=== PATIENT | female | born 1940 | race Caucasian/White ===

== ENCOUNTER 2016-10-17 06:51 | Inpatient (IN) | payer OTHER ==
[~2016-10-17] VITALS: Ht 162.6 cm; Wt 102.0 kg
[2016-10-17 07:21] LABS: HEMATOCRIT 37.8 % (36.0-46.0); MCH 31.4 PG (29.0-34.0); MCHC 33.9 G/DL (30.0-36.0); MCV 92.6 FL (83-99); MEAN PLAT.VOLUME 9.9 uM^3 (9.5-12.4); PLATELET COUNT 171 K/uL (156-360); RBC DIS.WIDTH-CV 13.6 % (11.8-14.6); RBC DIS.WIDTH-SD 44.9 % (39-53); RED BLOOD COUNT 4.08 M/uL (3.80-5.20); WHITE BLOOD COUNT 15.1 K/uL (4.1-10.2)
[2016-10-17 07:33] LABS: INTER. NORMALIZED RATIO 4.4; PTT 40.4 (25-32)
[2016-10-17] MEDS ORDERED: WARFARIN SODIUM6 MG PO (07:38)
[2016-10-17] MEDS ORDERED: COUMADIN5 MG PO (07:38)
[2016-10-17 07:39] LABS: EOSINOPHIL (%) 0.1 % (0-5); IMMATURE GRANULOCYTE (%) 2.4 % (0.0-0.7); IMMATURE GRANULOCYTE COUNT 3.6 K/uL; LYMPHOCYTE COUNT 0.7 K/uL (1.0-2.8); MONOCYTE (%) 3.4 % (3-12); MONOCYTE COUNT 0.5 K/uL (0-0.8); NEUTROPHIL (%) 89.3 % (45-76); NEUTROPHIL COUNT 13.5 K/uL (1.8-6.4)
[2016-10-17] MEDS ORDERED: ATROVENT H200 INHALA IH (07:39)
[2016-10-17] MEDS ORDERED: FLOVENT DISKUS1 DIS2 IH ×2 (07:40)
[2016-10-17] MEDS ORDERED: LEVALBUTER1.25 MG/3 IH (07:41)
[2016-10-17] MEDS ORDERED: HYZAAR 100-11 TABLET PO (07:42)
[2016-10-17] MEDS ORDERED: MONTELUKAST SOD10 MG PO (07:42)
[2016-10-17] MEDS ORDERED: MUCINEX DM ER1 EACH PO (07:43)
[2016-10-17] MEDS ORDERED: OMEPRAZOLE20 MG PO (07:44)
[2016-10-17] MEDS ORDERED: DELTASONE20 M1 PO (07:44)
[2016-10-17] MEDS ORDERED: TRADJENTA5 MG PO (07:45)
[2016-10-17 07:46] LABS: ANION GAP 13 MEQ/L (2-14); CHLORIDE 98 MEQ/L (99-109); POTASSIUM 4.2 MEQ/L (3.7-5.4); SAMPLE HEMOLYSIS CHECK 0; SAMPLE ICTERIC CHECK 0; SAMPLE LIPEMIA CHECK 0; SODIUM 135 MEQ/L (136-147)
[2016-10-17] MEDS ORDERED: WELCHOL625 MG PO (07:46)
[2016-10-17 07:51] LABS: GFR ESTIMATE (CALCULATED) 51 mL/min/; GLUCOSE 324 mg/dL (70-99); UREA NITROGEN (BUN) 26 mg/dL (9-23)
[2016-10-17 07:55] LABS: TROP-I INTERPRETATION NEGATIVE; TROPONIN-I 0.02 ng/mL (0.0-0.30)
[2016-10-17 08:27] LABS: HEMATOLOGY COMMENT 1 SMEAR COMPATIBLE; USER ID LYM
[2016-10-17 10:31] LABS: POINT-OF-CARE METER ID UU13113747
[2016-10-17] MEDS ORDERED: WARFARIN SODIUM4 MG PO (11:30)
[2016-10-17] MEDS ORDERED: FLONASE16 G1 BOTH NARES (11:30)
[2016-10-17] MEDS ORDERED: CETIRIZINE HCL10 M2 PO (11:30)
[2016-10-17] MEDS ORDERED: METOPROLOL SUC100 MG PO (11:31)
[2016-10-17] MEDS ORDERED: I-CAPS AREDS S1 EACH PO (11:31)
[2016-10-17] MEDS ORDERED: MULTAQ400 MG PO (11:31)
[2016-10-17] MEDS ORDERED: ZETIA10 MG PO (11:32)
[2016-10-17 12:12] VITALS: BP 146/62
[2016-10-17 12:17] LABS: POINT-OF-CARE METER ID UU14174225
[2016-10-17 15:37] VITALS: BP 143/64
[2016-10-17 17:07] LABS: POINT-OF-CARE METER ID UU14174225
[2016-10-17 19:32] VITALS: BP 147/87
[2016-10-18] VITALS (12 sets, daily range): BP systolic 114–189; BP diastolic 56–88
[2016-10-18 07:07] LABS: EOSINOPHIL (%) 0 % (0-5); HEMATOCRIT 36.1 % (36.0-46.0); IMMATURE GRANULOCYTE (%) 0.8 % (0.0-0.7); IMMATURE GRANULOCYTE COUNT 0.1 K/uL; LYMPHOCYTE COUNT 0.6 K/uL (1.0-2.8); MCH 31.3 PG (29.0-34.0); MCHC 33.8 G/DL (30.0-36.0); MCV 92.6 FL (83-99); MEAN PLAT.VOLUME 10.8 uM^3 (9.5-12.4); MONOCYTE (%) 1.8 % (3-12); MONOCYTE COUNT 0.3 K/uL (0-0.8); NEUTROPHIL (%) 93.4 % (45-76); NEUTROPHIL COUNT 14.3 K/uL (1.8-6.4); PLATELET COUNT 179 K/uL (156-360); RBC DIS.WIDTH-SD 46.9 % (39-53); WHITE BLOOD COUNT 15.3 K/uL (4.1-10.2)
[2016-10-18 07:27] LABS: INTER. NORMALIZED RATIO 3.7; PROTHROMBIN TIME 39.5 (9.2-11.2)
[2016-10-18 07:34] LABS: ANION GAP 12 MEQ/L (2-14); CHLORIDE 97 MEQ/L (99-109); GFR ESTIMATE (CALCULATED) 46 mL/min/; GLUCOSE 321 mg/dL (70-99); POTASSIUM 4.1 MEQ/L (3.7-5.4); SAMPLE HEMOLYSIS CHECK 0; SAMPLE ICTERIC CHECK 0; SAMPLE LIPEMIA CHECK 0; SODIUM 137 MEQ/L (136-147); UREA NITROGEN (BUN) 31 mg/dL (9-23)
[2016-10-18 10:02] LABS: POINT-OF-CARE METER ID UU14174225
[2016-10-19] VITALS (13 sets, daily range): BP systolic 98–169; BP diastolic 42–88
[2016-10-19 07:01] LABS: INTER. NORMALIZED RATIO 2.8; PROTHROMBIN TIME 29.4 (9.2-11.2)
[2016-10-19 09:33] LABS: POINT-OF-CARE METER ID UU14174225
[2016-10-19 16:54] LABS: POINT-OF-CARE METER ID UU13113698
[2016-10-19 21:29] LABS: POINT-OF-CARE METER ID UU13113698
[2016-10-20] VITALS (7 sets, daily range): BP systolic 115–141; BP diastolic 43–72
[2016-10-20 06:41] LABS: INTER. NORMALIZED RATIO 2.1; PROTHROMBIN TIME 21.5 (9.2-11.2)
[2016-10-20 07:57] LABS: HEMATOCRIT 40.3 % (36.0-46.0); MCH 30.9 PG (29.0-34.0); MCHC 33.3 G/DL (30.0-36.0); MCV 92.9 FL (83-99); MEAN PLAT.VOLUME 10.7 uM^3 (9.5-12.4); PLATELET COUNT 205 K/uL (156-360); RBC DIS.WIDTH-CV 14.4 % (11.8-14.6); RBC DIS.WIDTH-SD 48.1 % (39-53); RED BLOOD COUNT 4.34 M/uL (3.80-5.20); WHITE BLOOD COUNT 17.7 K/uL (4.1-10.2)
[2016-10-20 08:08] LABS: ANION GAP 12 MEQ/L (2-14); CHLORIDE 97 MEQ/L (99-109); GFR ESTIMATE (CALCULATED) 39 mL/min/; GLUCOSE 203 mg/dL (70-99); POTASSIUM 3.4 MEQ/L (3.7-5.4); SAMPLE HEMOLYSIS CHECK 0; SAMPLE ICTERIC CHECK 0; SAMPLE LIPEMIA CHECK 0; SODIUM 139 MEQ/L (136-147); UREA NITROGEN (BUN) 44 mg/dL (9-23)
[2016-10-20 08:10] LABS: POINT-OF-CARE METER ID UU13113781; POINT-OF-CARE USER ID NUTSLF44
[2016-10-20] MEDS ORDERED: DOXYCYCLINE HY100 M3 PO (11:00)
[2016-10-20] MEDS ORDERED: METOPROLOL TART75 MG PO (11:04)
[2016-10-20] MEDS ORDERED: PREDNISONE10 MG PO (11:05)
[2016-10-20] MEDS ORDERED: LASIX20 MG PO (11:13)
[2016-10-20 12:12] LABS: POINT-OF-CARE METER ID UU13113781; POINT-OF-CARE USER ID NUTSLF44
[2016-10-20 16:51] LABS: POINT-OF-CARE METER ID UU13113698; POINT-OF-CARE USER ID NUTSLF44
== END 2016-10-20 18:20 | disposition home or self-care (01) | DRG 193 ==
LOC: EME → EDBD 06:51 → EDSEX 06:51 → EME 07:41 → 5SOUTH 09:21 → EDOF 09:21 → 5SOUTH 11:34 → 4EAST 10-19 05:07
PROVIDERS: Emergency Medicine; Internal Medicine; Physician Assistant Medical
DX: J18.9 Pneumonia, unspecified organism (principal); J96.21 Acute and chronic respiratory failure with hypoxia; I50.31 Acute diastolic (congestive) heart failure; J44.1 Chronic obstructive pulmonary disease with (acute) exacerbation; N17.9 Acute kidney failure, unspecified; E11.65 Type 2 diabetes mellitus with hyperglycemia; I48.0 Paroxysmal atrial fibrillation; J84.111 Idiopathic interstitial pneumonia, not otherwise specified; I12.9 Hypertensive chronic kidney disease with stage 1 through stage 4 chronic kidney disease, or unspecified chronic kidney disease; E78.5 Hyperlipidemia, unspecified; K21.9 Gastro-esophageal reflux disease without esophagitis; M19.90 Unspecified osteoarthritis, unspecified site; Z77.090 Contact with and (suspected) exposure to asbestos; J30.2 Other seasonal allergic rhinitis; J84.10 Pulmonary fibrosis, unspecified; I27.2 Other secondary pulmonary hypertension; E66.9 Obesity, unspecified; J20.9 Acute bronchitis, unspecified; N18.3 Chronic kidney disease, stage 3 (moderate); H35.30 Unspecified macular degeneration; E11.22 Type 2 diabetes mellitus with diabetic chronic kidney disease; I35.1 Nonrheumatic aortic (valve) insufficiency; I36.1 Nonrheumatic tricuspid (valve) insufficiency; E87.6 Hypokalemia; I34.0 Nonrheumatic mitral (valve) insufficiency; Z99.81 Dependence on supplemental oxygen; Z79.52 Long term (current) use of systemic steroids; Z79.01 Long term (current) use of anticoagulants; Z79.84 Long term (current) use of oral hypoglycemic drugs; Z68.38 Body mass index [BMI] 38.0-38.9, adult; Z88.2 Allergy status to sulfonamides; Z82.49 Family history of ischemic heart disease and other diseases of the circulatory system; Z80.41 Family history of malignant neoplasm of ovary; Z80.1 Family history of malignant neoplasm of trachea, bronchus and lung
CPT/HCPCS: 71010; 80048; 82948; 83880; 84484; 85025; 85027; 85610; 85730; 87040; 87070; 87205; 93005; 93306; 93970; 94640; 94640 76; 94667; 94668; 94799; 99202; 99281; 99285; J0456; J0692; J0696; J1100; J1160; J1815; J1940; J2930; J7030; J7050; J7512; J7644